=== PATIENT | male | born 1955 | race Caucasian/White ===

== ENCOUNTER → 2024-06-11 09:52 | Outpatient (REF) | payer BC, SELFPAY | LOC: DHSLP 09:52 | PROVIDERS: ATTENDING PHYSICIAN Internal Medicine; FAMILY PHYSICIAN Family Medicine | DX: G47.19 Other hypersomnia (principal); R06.83 Snoring | CPT/HCPCS: 95800 ==

== ENCOUNTER → 2024-08-16 09:12 | Outpatient (REF) | payer BC, SELFPAY | LOC: DHSLP 09:12 | PROVIDERS: ATTENDING PHYSICIAN Internal Medicine; FAMILY PHYSICIAN Family Medicine | DX: G47.33 Obstructive sleep apnea (adult) (pediatric) (principal) | CPT/HCPCS: 95810 ==

== ENCOUNTER 2025-02-19 10:23 | Emergency (ER) | payer OTHER, SELFPAY ==
[2025-02-19 10:25] VITALS: BP 118/79
--- NOTE | 2025-02-19 13:26 | ED.GENMED ---
History of Present Illness
General
Chief Complaint: Skin Surface Trauma
Time Seen by Provider: 02/19/25 12:14
History of Present Illness
History of Present Illness:
69-year-old male presents the emergency department for evaluation of a right index finger laceration sustained with a hedge. Bleeding is controlled with pressure. Last tetanus was 2 weeks ago.
Past History
Past History
ED Past Medical History: None
ED Past Surgical History: Tonsilectomy and Other (oral surgery)
Social History
Tobacco: Non-smoker
Personal:
Employment: Employed
Review of Systems
Review of Systems
Allergies reviewed?: Yes
All Other Systems: ROS reviewed and negative except as documented in HPI and ROS
Phy Exam
Physical Exam
Physical Exam:
GEN: Well appearing, NAD, WDWN
HEENT: Oral mucosa moist, no scleral icterus
Cardiac: Regular rate
Lung: No respiratory distress, no tachypnea
MSK: No gross deformity or injuries
Skin: Good color, no pallor or jaundice, no rashes. 2 cm oblique laceration through the distal aspect of the right index finger through the nail plate but does not involve the cuticle
Neuro: AO x3, moves all extremities freely
Psych: Calm, cooperative
Course
Orders/Labs/Results
Orders:
Orders
02/19/25
Finger(s)/Thumb 2 View Rt [CR Finger(s)/thumb Min 2 Vw Rt] Urgent
Comment:
Reason For Exam: possible amputation
Indicate Which Finger:: Index Finger
Vital Signs
Initial and Last Documented VS:
Initial Vital Signs
Temp Pulse Resp BP Pulse Ox
98.0 F 70 16 118/79 98
02/19/25 10:25 02/19/25 10:25 02/19/25 10:25 02/19/25 10:25 02/19/25 10:25
Last Documented Vital Signs
Temp Pulse Resp BP Pulse Ox
98.0 F 70 16 118/79 98
02/19/25 10:25 02/19/25 10:25 02/19/25 10:25 02/19/25 10:25 02/19/25 10:25
Procedures
Laceration Closure
Right index finger:
Status of Wound: clean
Size of Wound in cm: 2
Description of Wound Edges: sharp
Preparation: cleaned with soap & water
Anesthesia: 1% Lidocaine
Type of Closure: single layer closure
Skin Closure Material: 5-0 nylon
Number of sutures: 3
MDM/Problems Addressed
MDM/Problems Addressed:
X-ray shows no evidence for osseous interruption. No indication for antibiotics. Discussed supportive care
*Critical Care Note
Total Time (30-74mins, 75-104mins- exclusive of procedures): Not Applicable
ED Attending Note
-
Portions of this chart may have been created with voice recognition software.� Occasional wrong word or��sound alike� substitutions may have occurred due to the inherent limitations of voice recognition software.
Discharge Plan
Departure
Patient Disposition: Home (Routine Discharge)
Date of Disposition: 02/19/25
Time of Disposition: 13:28
Patient with high blood pressure during this ER visit?: No
Discharge Problem:
Laceration of right index finger
Instructions: Laceration Repair With Stitches (DC)
Prescriptions:
No Action
indomethacin 25 MG capsule
25 mg PO TID Qty: 20 0RF
Rx Instructions:
with food
Referrals:
Mirza Ramos MD [Family Provider, Internal Medicine]
Activity Restrictions/Additional Instructions:
Keep wound dry for next 24 hours
Rinse gently with soap and water each day
Suture removal in 7-10 days
Interventions
Interventions:
*Risk Screen - Suicide Last Done: 02/19/25 10:25
*General Assessment Last Done: 02/19/25 12:21
*Neglect/Abuse Screening Last Done: 02/19/25 10:25
*ED- Fall Risk Assessment Last Done: 02/19/25 12:21
*ED COVID-19 Vaccine History Last Done: 02/19/25 12:21
*Nursing Disposition Last Done: 02/19/25 13:50
ED-Skin Assessment Last Done: 02/19/25 12:21
Discharge Date and Time
Discharge Date/Time: 02/19/25 13:50
Print Language: GREEK
== END 2025-02-19 13:50 | disposition home or self-care (01) ==
LOC: EMR 10:23
PROVIDERS: EMERGENCY PHYSICIAN Emergency Medicine; FAMILY PHYSICIAN Internal Medicine
DX: S61.210A Laceration without foreign body of right index finger without damage to nail, initial encounter (principal); W27.1XXA Contact with garden tool, initial encounter
CPT/HCPCS: 99283; 12001; 73140